=== PATIENT | female | born 1965 | race Caucasian/White ===

== ENCOUNTER → 2020-12-08 09:42 | Outpatient (CLI) | payer OTHER, SELFPAY ==
--- NOTE | 2020-12-08 09:48 | DI.RAD.S_ITS ---
PROCEDURE: XR HAND RT MIN 3V INDICATIONS: RHEUMATOID ARTHRITIS TECHNIQUE: 3 views of the hand(s) acquired. COMPARISON: None. FINDINGS: Bones: No fractures or dislocations. Carpal bones are normally aligned. No suspicious bony lesions. Triscaphe 8 joint space narrowing and subchondral sclerosis present. No osseous erosions. Soft tissues: No suspicious soft tissue calcifications. 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 on 12/08/2020 at 10:24
--- NOTE | 2020-12-08 09:48 | DI.RAD.S_ITS ---
PROCEDURE: XR KNEE LT 4V INDICATIONS: RHEUMATOID ARTHRITIS TECHNIQUE: 3 views of the knee were acquired. COMPARISON: None. FINDINGS: Bones: No fractures or dislocations. No suspicious bony lesions. Mild medial compartment joint space narrowing Soft tissues: No joint effusion. No suspicious soft tissue calcifications. IMPRESSION: Mild medial compartment joint space narrowing Approved by: Marino Ruelas M.D. on 12/08/2020 at 10:26
--- NOTE | 2020-12-08 09:48 | DI.RAD.S_ITS ---
PROCEDURE: XR KNEE RT 4V INDICATIONS: RHEUMATOID ARTHRITIS TECHNIQUE: 3 views of the knee were acquired. COMPARISON: None. FINDINGS: Bones: No fractures or dislocations. No suspicious bony lesions. Mild medial compartment joint space narrowing. No marginal erosions. Soft tissues: No joint effusion. No suspicious soft tissue calcifications. IMPRESSION: Mild degenerative medial compartment joint space narrowing. No marginal erosions. Approved by: Marino Ruelas M.D. on 12/08/2020 at 10:27
--- NOTE | 2020-12-08 09:48 | DI.RAD.S_ITS ---
PROCEDURE: XR HAND LT MIN 3V INDICATIONS: RHEUMATOID ARTHRITIS TECHNIQUE: 3 views of the hand acquired. COMPARISON: None. FINDINGS: Bones: No acute fractures or dislocations. Carpal bones are normally aligned. No suspicious bony lesions. Joint space narrowing and subchondral sclerosis are seen at the triscaphe joint. There is mild marginal osteophyte formation of the 1st carpometacarpal joint. No focal osseous erosion is seen. Soft tissues: No suspicious soft tissue calcifications. IMPRESSION: Arthritic changes at the triscaphe joint are most likely secondary to osteoarthrosis. No definite radiographic signs of rheumatoid arthritis. If indicated, MRI could be obtained for more sensitive evaluation for early inflammatory arthritis. Dictated by: Sundeep Nj M.D. on 12/08/2020 at 11:18 Approved by: Sundeep Nj M.D. on 12/08/2020 at 11:22
[2020-12-08 10:35] LABS: Add Manual Diff / Slide Review NO; Basophils Absolute Auto 100 /uL (0-100); Basophils Percent Auto 1.4 % (0-2); Eosinophils Absolute Auto 0 /uL (0-450); Hematocrit 39.9 % (36-46); Hemoglobin 13.5 g/dL (12.0-16.0); Lymphocytes Absolute Auto 1400 /uL (1100-4500); Mean Corpuscular HGB Conc 33.8 % (30-36); Mean Corpuscular Hemoglobin 32.3 PG (26-34); Mean Corpuscular Volume 95.5 fL (80-100); Monocytes Absolute Auto 400 /uL (0-900); Neutrophils Absolute Auto 2600 /uL (1500-7000); Neutrophils Percent Auto 59.6 % (50-75); Platelet Count 272 X10^3/uL (150-400); Red Blood Cell Count 4.18 X10^6/uL (4.0-5.2); Red Cell Distribution Width 13.7 % (11.6-14.8); White Blood Cell Count 4.4 X10^3/uL (4.5-11.0)
[2020-12-08 11:05] LABS: Erythrocyte Sedimentation Rate 7 MM/HR (0-20)
[2020-12-08 11:22] LABS: Alanine Aminotransferase 17 IU/L (<35); Albumin 4.7 g/dL (3.5-5.0); Albumin Globulin Ratio 1.9 (1.0-2.8); Alkaline Phosphatase 94 U/L (38-126); Aspartate Aminotransferase 27 IU/L (14-36); BUN Creatinine Ratio 17.7 (6-22); Bilirubin Total 0.5 mg/dL (0.2-1.3); Blood Urea Nitrogen 11 mg/dL (7-17); C-Reactive Protein Quant < 0.5 mg/dL (<1.0); Calcium 10.1 mg/dL (8.4-10.2); Carbon Dioxide 30 mmol/L (22-32); Chloride 105 mmol/L (98-107); Estimated Glomerular Filt Rate > 60.0 mL/min (>60); Globulin 2.5 g/dL (1.7-4.1); Glucose 65 mg/dL (70-100); HEMOLYSIS < 15 (0-50); Potassium 4.2 mmol/L (3.4-5.1); Sodium 141 mmol/L (137-145); Total Protein 7.2 g/dL (6.3-8.2)
== END ==
PROVIDERS: PCP Physician Assistant; Referring Provider Internal Medicine Rheumatology; Visit Provider Internal Medicine Rheumatology
DX: M05.79 Rheumatoid arthritis with rheumatoid factor of multiple sites without organ or systems involvement (principal)
CPT/HCPCS: 36415; 73130; 73564; 80053; 83520; 85025; 85651; 86140